=== PATIENT | male | born 1945 | race Caucasian/White ===

== ENCOUNTER → 2021-03-22 06:35 | Outpatient (CLI) | payer MEDICARE, SELFPAY ==
[2021-03-20 16:07] VITALS: BMI 29.5
--- NOTE | 2021-03-22 06:40 | CT_ITS ---
STUDY: CT CHEST WITH CONTRAST REASON FOR EXAM: Male, 75 years old. Staging for left parotid gland cancer. RADIATION DOSAGE (If Supplied By Facility): CTDIvol = ( 17.24 ) mGy, DLP = ( 736.60 ) mGycm TECHNIQUE: Transaxial imaging was performed following intravenous administration of IV 100mL Isovue-300. Multiplanar coronal and sagittal images were reformatted. Individualized dose optimization techniques were used for this CT. COMPARISON: None. FINDINGS: There is a 1.2 cm lymph node in the left submandibular region. Small benign-appearing bilateral axillary lymph nodes. Minimal linear scarring in the posterior medial segment of the right lower lobe. There is no demonstrated pleural abnormality. There are calcifications of the coronary arteries. Normal mediastinum. Normal hilar regions. Normal enhanced pulmonary arteries. Normal aorta arch and descending thoracic aorta. There are multi-level degenerative changes of the thoracic spine. Small hiatal hernia. Tiny gallstones. Bilateral renal cysts. Small left retroperitoneal lymph nodes seen in the upper abdomen. CT/Chest WITH Contrast IMPRESSION: 1.2 cm lymph node in the left submandibular region. Minimal scarring along the posterior mediastinum at the right lower lobe. Electronically Signed: Jeffrey Stacy MD at 10:11 EDT , Service support ,
== END ==
PROVIDERS: PCP Nurse Practitioner Primary Care; Referring Provider Student in an Organized Health Care Education/Training Program; Visit Provider Student in an Organized Health Care Education/Training Program
DX: C07 Malignant neoplasm of parotid gland (principal)
CPT/HCPCS: 71260; Q9967

== ENCOUNTER → 2021-04-10 14:13 | Outpatient (CLI) | payer MEDICARE, SELFPAY ==
[2021-03-20 16:07] VITALS: BMI 29.5
--- NOTE | 2021-04-10 15:37 | ST.MBS ---
Modified Barium Swallow - Patient Information Study Date: 04/10/21 Study Time: 14:30 Direct Billable Minutes: 95 Total Minutes procedure & reportin Diagnosis: Primary parotid gland malignancy (C07) Referring Physician: Jackson West Reason for Referral: To objectively assess swallow function and aspiration risk during radiation treatment. 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 [place] [place]. According to the patient and his , he is planned for follow-up facial surgery when he has completed treatment. No date has been set at this time. Plan was made to complete adjuvant radiation therapy consisting of 6996 cGy delivered to the concerning ipsilateral lymph nodes, 6600 cGy delivered to the postoperative tumor bed and left neck level 2, and 5940 cGy delivered to the remaining left neck into the base of skull all in 33 fractions. The patient began radiation therapy on 03/28/2021 and is planned for 6.5 weeks of treatment. Additional PMH: Arthritis, GERD, HTN, Hypercholesterolemia, H/O hernia repair, H/O splenectomy, Knee joint replacement status Current Diet Ordered: Regular Textures / Thin Liquids Dentition: WNL Mental Status: WNL Respiratory Status: Oxygenating on Room Air - Study Findings Consistencies: Thin Liquid, Grill Thick Liquid, Honey Thick Liquid, Pudding, Cookie - Penetration-Aspiration Scale Penetration-Aspiration Scale: OBJECTIVE ASSESSMENT OF SWALLOW FUNCTION (QUANTITATIVE ? PER TRIAL): PENETRATION / ASPIRATION SCALE (VAUGHN): 1 = does not enter airway 2 = enters airway/above vocal folds/ejected 3 = enters airway/above vocal folds/not ejected 4 = enters airway/contacts vocal folds/ejected 5 = enters airway/contacts vocal folds/not ejected 6 = enters airway/below vocal folds/ejected 7 = enters airway/below vocal folds/not ejected despite effort 8 = enters airway/below vocal folds/no effort VIDEOFLOROSCOPIC SCALE SCORE (VAUGHN): Grade I = aspiration of material that has penetrated into the laryngeal vestibule, intact cough reflex Grade II = aspiration < 10 % of the bolus, intact cough reflex Grade III = aspiration of < 10 % of the bolus, reduced cough reflex or aspiration of > 10 % of the bolus, intact cough reflex Grade IV = aspiration of > 10 % of the bolus, reduced cough reflex - Penetration-Aspiration Scale Score Thin Liquid via teaspoon Result: 1= does not enter airway Thin Liquid via teaspoon Trial 2 Result: 1= does not enter airway Thin Liquid via small single sip from cup Result: 1= does not enter airway Thin Liquid via large single sip from cup Result: 1= does not enter airway Thin Liquid via sequential sips from cup Result: 2= enter airway/above vocal folds/ejected Grill Thick Liquid via small single sip from cup Result: 1= does not enter airway Honey Thick Liquid via small single sip from cup Result: 1= does not enter airway Pudding with esophageal screen Result: 1= does not enter airway Cookie Result: 1= does not enter airway Thin Liquid via single sip from straw Result: 1= does not enter airway Thin Liquid via sequential sips from straw Result: 1= does not enter airway - Oral Phase Labial Seal: No Labial Escape Tongue Control During Bolus Hold: Posterior escape of less than half of bolus Bolus Preparation/Mastication: Slow prolonged chewing/mashing with complete recollection Bolus Transport/Lingual Motion: Brisk tongue motion Oral Residue: Residue collection on oral structures - Pharyngeal Phase Initiation of Pharyngeal Swallow: Bolus head at posterior laryngeal surgace of epiglottis Soft Palate Elevation: No bolus between soft palate and pharyngeal wall Laryngeal Elevation: Partial superior movement thyroid cart/partial apprx aryt-epig petiole Anterior Hyoid Excursion: Complete anterior movement Epiglottic Movement: Partial inversion Laryngeal Vestibule Closure at Height of Swallow: Incomplete; narrow column of air/contrast in laryngeal vestibule Pharyngeal Stripping Wave: Present - diminished Pharyngoesophageal Segment Opening: Parital distension and partial duration; parital obstruction of flow Tongue Base Retraction: Trace column of contrast between tongue base & post. pharyngeal wall Pharyngeal Residue: Collection of residue within or on pharyngeal structures - Esophageal Phase Esophageal Clearance: Esophageal retention - Mild retention observed. - Treatment Strategies Effects of treatment strategies attemped:: Decreased bolus rate = Effective. - Diagnosis/Impression Diagnosis: Mild oropharyngeal phase dysphagia (R13.12) Impression: The patient's oral phase is primarily marked by mildly decreased bolus control with posterior escape of less than half of the bolus prior to swallow onset. He presents with prolonged but effective mastication and mild oral residues that he would independently clear with initiation of a second swallow. The pharyngeal phase of the swallow is marked by decreased airway closure due to mildly decreased laryngeal elevation and approximation of the arytenoids to the posterior surface of the epiglottis. He also presented with mildly delayed initiation of the pharyngeal swallow when consuming thin liquid trials. The patient also presents with mild pharyngeal residues in the vallecula and pyriform sinuses, likely due to decrease pharyngeal contraction and duration of UES opening. The patient presented with penetration of contrast into the laryngeal vestibule with sequential swallows of thin liquids via cup. The penetration of contrast remained above the vocal folds and fully ejected from the airway. - Recommendations Diet: Regular Textures, Thin Liquids Comment: Right sided bolus placement. Tongue/finger sweep left side oral residue/pocketing if needed. Compensatory Strategies: Small Bites, Small Sips, Slow Rate - Consume sips one at a time., Alternate bites/solids and sips/liquids, Sitting upright, Remain sitting upright for 30 minutes after PO intake Recommend Repeat Modified Barium Swallow: Yes - Will recommend repeat MBS study 3 months after completion of radiation treatment. Need for Skilled Speech Therapy Services: Yes Comment: Will recommend continued outpatient speech therapy for ongoing assessment of diet tolerance, continued education re: diet recommendations and effects of radiation on swallow function, and continued implementation of prophylactic exercise program to maintain swallow function during and post radiation treatment. Education Completed: 1. Described result of evaluation., 2. Pt understands evaluation & agrees with goals and treatment plan. - Status Active ST Patient: Active - Contact Information [facility] Speech Therapy:: Shelli Munoz M.A., [facility]-[employer] SCHO[employer] TEACHER Speech Language Pathologist [facility] [address] [place] [address] [email or web address] [phone]
== END ==
PROVIDERS: PCP Nurse Practitioner Primary Care; Referring Provider Student in an Organized Health Care Education/Training Program; Visit Provider Student in an Organized Health Care Education/Training Program
DX: Z51.0 Encounter for antineoplastic radiation therapy (principal); C07 Malignant neoplasm of parotid gland
CPT/HCPCS: 74230; 77336; 77386; 92611

== ENCOUNTER → 2021-08-20 13:08 | Outpatient (CLI) | payer MEDICARE, SELFPAY ==
--- NOTE | 2021-08-20 14:37 | SP.MBSS_ITS ---
Modified Barium Swallow - Patient Information Study Date: 08/20/21 Study Time: 13:30 Direct Billable Minutes: 105 Total Minutes procedure & reportin Diagnosis: Primary parotid gland malignancy (C07) Referring Physician: Jackson West Reason for Referral: Reassess swallow function and aspiration 3 months post radiation therapy. 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 According to the patient and his , he is planned for follow-up facial surgery September 2021. The patient began radiation therapy on 03/28/2021 and had 6.5 weeks of treatment. He is planned for repeat MBS study on this date to reassess swallow function post radiation. His previous MBS study on 04/10/21 revealed mild oropharyngeal dysphagia and recommended Regular Textures, Thin Liquids with the following aspiration precautions: Right sided bolus placement. Tongue/finger sweep left side oral residue/pocketing if needed, Small Bites, Small Sips, Slow Rate - Consume sips one at a time., Alternate bites/solids and sips/liquids, Sitting upright, Remain sitting upright for 30 minutes after PO intake. Additional PMH: Arthritis, GERD, HTN, Hypercholesterolemia, H/O hernia repair, H/O splenectomy, Knee joint replacement status Current Diet Ordered: Regular Textures / Thin Liquids Dentition: WNL Mental Status: WNL Respiratory Status: Oxygenating on Room Air - Penetration-Aspiration Scale Penetration-Aspiration Scale: OBJECTIVE ASSESSMENT OF SWALLOW FUNCTION (QUANTITATIVE ? PER TRIAL): PENETRATION / ASPIRATION SCALE (VAUGHN): 1 = does not enter airway 2 = enters airway/above vocal folds/ejected 3 = enters airway/above vocal folds/not ejected 4 = enters airway/contacts vocal folds/ejected 5 = enters airway/contacts vocal folds/not ejected 6 = enters airway/below vocal folds/ejected 7 = enters airway/below vocal folds/not ejected despite effort 8 = enters airway/below vocal folds/no effort VIDEOFLOROSCOPIC SCALE SCORE (VAUGHN): Grade I = aspiration of material that has penetrated into the laryngeal vestibule, intact cough reflex Grade II = aspiration < 10 % of the bolus, intact cough reflex Grade III = aspiration of < 10 % of the bolus, reduced cough reflex or aspiration of > 10 % of the bolus, intact cough reflex Grade IV = aspiration of > 10 % of the bolus, reduced cough reflex - Penetration-Aspiration Scale Score Thin Liquid via teaspoon Result: 1= does not enter airway Thin Liquid via teaspoon Trial 2 Result: 1= does not enter airway Thin Liquid via small single sip from cup Result: 1= does not enter airway Thin Liquid via sequential sips from cup Result: 1= does not enter airway Crum Thick Liquid via small single sip from cup Result: 1= does not enter airway Honey Thick Liquid Result: 1= does not enter airway Pudding with Esophageal Screen Result: 1= does not enter airway Cookie Result: 1= does not enter airway Thin Liquid via single sip from straw Result: 1= does not enter airway Thin Liquid via sequential sips from straw Result: 1= does not enter airway - Oral Phase Labial Seal: No Labial Escape Tongue Control During Bolus Hold: Posterior escape of less than half of bolus Bolus Preparation/Mastication: Slow prolonged chewing/mashing with complete recollection Bolus Transport/Lingual Motion: Repetitive/disorganized tongue motion Oral Residue: Residue collection on oral structures - Pharyngeal Phase Initiation of Pharyngeal Swallow: Bolus head in valleculae Soft Palate Elevation: Trace column of contrast/air between soft palate and pharyngeal wall Laryngeal Elevation: Partial superior movement thyroid cart/partial apprx aryt- epig petiole Anterior Hyoid Excursion: Complete anterior movement Epiglottic Movement: Complete inversion Laryngeal Vestibule Closure at Height of Swallow: Complete; no air/contrast in laryngeal vestibule Pharyngeal Stripping Wave: Present - complete Pharyngoesophageal Segment Opening: Parital distension and partial duration; parital obstruction of flow Tongue Base Retraction: Trace column of contrast between tongue base & post. pharyngeal wall Pharyngeal Residue: Trace residue within or on pharyngeal structures - Esophageal Phase Esophageal Clearance: Esophageal retention w/ retrograde flow through pharyngoesophageal seg - Treatment Strategies Effects of treatment strategies attemped:: Double swallow = Effective in clearing mild oral and trace pharyngeal residues. - Diagnosis/Impression Diagnosis: Mild oropharyngeal phase dysphagia (R13.12) Impression: The oral phase is primarily marked by slowed, but effective mastication. He presented with mild deficits in A-P transport of bolus with repetitive lingual movements noted. The patient required a double swallow intermittently to clear mild oral residues; however, he did independently initiate use of double swallow. Jaw opening appeared to be WNL. The pharyngeal phase of the swallow is primarily marked by mildly decreased laryngeal elevation. The patient additionally has mild retention of contrast in the UES with retrograde flow of bolus resulting in mild pharyngeal residue in the pyriforms. No aspiration or penetration observed during the study. Cr icopharyngeal bar evident at C5 level; however, it did not appear to significantly impact bolus clearance through the UES. - Recommendations Diet: Regular Textures, Thin Liquids Comment: R sided bolus placement, tongue/finger sweep if needed to clear pocketing Compensatory Strategies: Small Bites, Small Sips, Slow Rate, Multiple Swallows - Intermittently throughout meals., Sitting upright, Remain sitting upright for 30 minutes after PO intake Recommend Repeat Modified Barium Swallow: Yes - Will plan for repeat MBS study in 6 months to re-assess for swallow dysfunction and increased aspiration risk related to manager terminal effects of radiation therapy. Need for Skilled Speech Therapy Services: Yes Comment: GLUE MOUNTER OPERATOR recommended the patient strictly adhere to home exercise program to prevent swallow dysfunction and increased aspiration risk s/p radiation therapy. Re- educated pt in manager terminal effects of radiation therapy, including radiation fibrosis. Pt verbalized understanding and plans to complete home exercise program 3-5X daily. GLUE MOUNTER OPERATOR recommended pt calls to reschedule OP speech therapy appointment if requiring re-education for home exercise program. Education Completed: 1. Described result of evaluation., 2. Pt understands evaluation & agrees with goals and treatment plan., 4. Family/caregivers understand evaluation & agree w/ goals & tx plan. - Status Active ST Patient: Active - Contact Information [facility] Speech Therapy:: Shelli Munoz M.A. [facility]-GLUE MOUNTER OPERATOR Speech-Language Pathologist [facility] [address] [place] [address] [email or web address] [phone] 08/20/21 14:51
== END ==
PROVIDERS: PCP Nurse Practitioner Primary Care; Referring Provider Student in an Organized Health Care Education/Training Program; Visit Provider Student in an Organized Health Care Education/Training Program
DX: C07 Malignant neoplasm of parotid gland (principal)
CPT/HCPCS: 74230; 92611

== ENCOUNTER 2021-12-14 10:30 | Outpatient (RCR) | payer MEDICARE, SELFPAY ==
[2021-03-20 16:07] VITALS: BMI 29.5
--- NOTE | 2021-04-03 12:57 | HP.SP.AD_ITS ---
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 According to the patient and his , he is planned for follow-up facial surgery when he has completed treatment. No date has been set at this time. Plan was made to complete adjuvant radiation therapy consisting of 6996 cGy delivered to the concerning ipsilateral lymph nodes, 6600 cGy delivered to the postoperative tumor bed and left neck level 2, and 5940 cGy delivered to the remaining left neck into the base of skull all in 33 fractions. The patient began radiation therapy on 03/28/2021 and is planned for 6.5 weeks of treatment. Additional PMH: Arthritis, GERD, HTN, Hypercholesterolemia, H/O hernia repair, H/O splenectomy, Knee joint replacement status Smoking Status: Never smoker - Pain Is pain an issue with your current prescribed condition?: No - Personal Occupation: Retired diversified crops farmer Right Hearing Abillity: Normal Left Hearing Abillity: Normal Visual Assistive Devices: None Patients Living Arrangements: With Significant Other Patient Allergies - Allergies Allergies No Known Allergies Allergy (Verified 03/28/21 12:56) Subjective Dysphagia - Symptoms Reported Other: Food can become stuck in L buccal cavity. - Current Diet Solids Current Diet: Regular - Current Diet Liquids Current Liquids: Thin Objective Dysphagia - Administered by Administered by: Self - Thin Liquids Administred via: Cup, Straw Laryngeal Elevation: WFL Comments: Patient consumed single and continuous sips (via straw) with no overt s/s of aspiration. He independently utilized R sided bolus placement. No patient reports for sensation of stasis. Vocal quality clear throughout trials. - Pureed Comments: Trialed bites of applesauce with minimal L sided pocketing reported from the patient. He effectively cleared L sided pocketing with tongue and liquid wash. No overt s/s of aspiration observed during trials. - Regular Impaired Mastication: Prolonged but adequate mastication observed. Comments: No overt s/s of aspiration observed during trials. Oral residue WNL. No patient complaints for sensation of stasis in throat after completion of trials. - Results Swallowing Within Normal Limits: No Swallowing Diagnosis: Oral Phase Dysphagia Additional: Plan for MBS study to further assess pharyngeal phase of swallow. Severity: Mild Other Impressions - Comments CRANIAL NERVE EXAMINATION -: CRANIAL NERVE EXAMINATION: TRIGEMINAL NERVE (V) ? impaired; decreased sensation to L side of the face, no contraction of L masseter observed upon palpation with jaw clench. FACIAL NERVE (VII) ? impaired; the patient presents with severe L sided facial paresis. Minimal ROM observed on L side of lips; however, the patient was able to demonstrate adequate lip seal holding air in his cheeks. VAGUS NERVE (X) ? no clinical abnormalities observed. HYPOGLOSSAL NERVE (XII) ? impaired; slight deviation of tongue to the right side upon protraction. Other oral motor observations: edema of L buccal cavity, oral mucosa pink and moist at this time, jaw ROM is mildly decreased. The patient noted he had impaired jaw ROM after his surgery this past January; however, he has noticed great improvement. Diet Recommendations -: Will recommend the patient for Regular textures (tough meats prepared bite- sized) / Thin liquids with aspiration precautions for small bites/sips, R-sided bolus placement, lingual/finger sweep of pocketing textures, alternate liquids and solids throughout meals, upright 90 degrees during meals and remain upright 30-60 minutes following meal. Pt and pt's verbalized understanding. Swallowing Scales -: Functional Oral Intake Scale: 7 ? Total oral intake with no special preparation, but must avoid specific food or liquid items (Regular textures / Thin liquids with preparation of tough meats cut bite-sized). Performance Status Scale for Head and Neck Cancer Patients: Normalcy of Diet ? 100 ? Full diet. Public Eating ? 100 ? No restriction of place, food, or crime specialist due to difficulty swallowing. Pt?s family have only recently began returning to restaurants after the COVID-19 pandemic. Understandability of Speech ? 100 ? Always understandable. Plan - Plan Plan: Will recommend the patient for skilled outpatient dysphagia therapy to address oral dysphagia related to cancer of parotid gland s/p parotidectomy and L neck dissection. Will provide the patient further education re: prophylactic oropharyngeal exercise program, diet texture recommendations, aspiration precautions, and compensatory strategies to decrease risk for aspiration. Plan for participation in MBS study to further assess aspiration risk, pharyngeal phase of swallow, and provide baseline swallow function. Additionally, will provide ongoing assessment of diet tolerance during and post radiation treatment. Without skilled ST services, the patient is at risk for aspiration, weight loss, and malnutrition. - Recommendations MBS: Yes Treatment Warranted: Yes - Frequency Frequency: Every Other Week Duration: 12 Months - Prognosis Prognosis: Excellent - Goals that are Established: Determination:: Goals will be added/modified as deemed necessary and appropriate. Therapy will be discontinued when results of re-evaluation indicate therapy is no longer needed or lack of progress has been documented. - Goal #1-5 Goal #1: The patient will consume least restrictive diet textures without overt s/s of aspiration with 90% accuracy with minimal verbal cues for use of compensatory strategies to decrease risk for aspiration. Goal #2: The patient will complete an oropharyngeal home exercise program during and post radiation treatment X10 repetitions, 3-5X daily independently to improve and maintain strength, ROM, and coordination of swallowing mechanism. Goal #3: The patient will participate in MBS study to objectively assess swallow function and provide recommendations for safest, least restrictive diet and compensatory strategies to reduce risk for aspiration. Education - Patient has Indicated that the Following Identified Educational Needs: None The Patient has indicated that they have no educational or learning abilities that may effect their care.: Yes - Patient Instruction Patient Education: Treatment Plan, Goals, Safety Precautions, Diet Level, Home Exercise Program Other Education: Education provided regarding the potential impacts of radiation treatment on swallow function during and post treatment, including effects such as mucositis, dysgeusia, xerostomia, radiation fibrosis, and disuse atrophy which may result in restricted range of motion and weakness of swallowing mechanism. Discussed impaired swallowing and increased risk for aspiration, aspiration related illnesses, weight loss, and malnutrition. Discussed importance for speech therapy to monitor and address dysphagia both during and post radiation treatment to maintain optimal swallow function through continued education and exercise program. Provided the patient a handout and demonstration of prophylactic oropharyngeal exercise program, stretch to promote jaw ROM. The patient provided return demonstration with all exercises 5X each with minimal verbal cues and demonstration. The patient would benefit from continued training to monitor proper execution of exercises and encourage strict adherence to exercise program. Person Taught: Patient, Significant Other Teaching Method: Discussion, Demonstration, Handout, Teach back Response to teaching: Return demonstration, Verbalize understanding, Reinforcement needed
--- NOTE | 2022-04-19 13:45 | HP.SP.DC ---
ST Discharge Summary - Discharged: Discharge: The patient was evaluated by speech therapy 04/03/2021 for dysphagia secondary to salivary duct carcinoma with left total parotidectomy with resection of facial nerve, left selective neck dissection and radiation treatment planned. He participated in 5 sessions to train in oropharyngeal strengthening and strategies to decrease risk for aspiration. Most recent MBS study 03/13/2022 recommended Regular Textures, Thin Liquids with use of strategies, continued completion of home oropharyngeal exercise program to maintain optimal swallow function, and plan for repeat MBS study in 1 year to monitor dysphagia as he is at risk for worsening swallow function s/p radiation treatment. Will recommend return to dysphagia therapy if worsening s/s of aspiration or need for review in oropharyngeal exercise program.
== END 2021-12-14 19:00 | disposition home or self-care (01) ==
LOC: SP 10:30
PROVIDERS: PCP Nurse Practitioner Primary Care; Referring Provider Student in an Organized Health Care Education/Training Program; Visit Provider Student in an Organized Health Care Education/Training Program
DX: C07 Malignant neoplasm of parotid gland (principal)
CPT/HCPCS: 92526; 92610

== ENCOUNTER → 2022-03-13 | Outpatient (CLI) | payer MEDICARE, SELFPAY ==
--- NOTE | 2022-03-13 13:28 | ST.MBS ---
Modified Barium Swallow - Patient Information Study Date: 03/13/22 Study Time: 12:45 Direct Billable Minutes: 75 Total Minutes procedure & reportin Diagnosis: Malignant neoplasm of parotid gland (C07) Referring Physician: Jackson West Reason for Referral: Objectively assess swallow function, risk for aspiration, and determine recommendations for least restrictive diet textures and compensatory strategies to improve safety of swallow. 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 The patient began radiation therapy on 03/28/2021 and had 6.5 weeks of treatment. He is planned for repeat MBS study on this date for ongoing assessment of swallow function post radiation. He is at risk for worsening dysphagia and increased aspiration risk. MBS study on 04/10/21 revealed mild oropharyngeal dysphagia and recommended Regular Textures, Thin Liquids with the following aspiration precautions: Right sided bolus placement. Tongue/finger sweep left side oral residue/pocketing if needed, Small Bites, Small Sips, Slow Rate - Consume sips one at a time., Alternate bites/solids and sips/liquids, Sitting upright, Remain sitting upright for 30 minutes after PO intake. Repeat study on 08/20/2021 revealed continued mild oropharyngeal dysphagia and recommended Regular Textures / Thin Liquids with the following aspiration precautions: R sided bolus placement, tongue/finger sweep if needed to clear pocketing, Small Bites, Small Sips, Slow Rate, Multiple Swallows - Intermittently throughout meals., Sitting upright, Remain sitting upright for 30 minutes after PO intake. The patient reported having eyebrow lift in September 2021. Additional PMH: Arthritis, GERD, HTN, Hypercholesterolemia, H/O hernia repair, H/O splenectomy, Knee joint replacement status Current Diet Ordered: Regular Textures / Thin Liquids Dentition: WNL Mental Status: WNL Respiratory Status: Oxygenating on Room Air - Penetration-Aspiration Scale Penetration-Aspiration Scale: OBJECTIVE ASSESSMENT OF SWALLOW FUNCTION (QUANTITATIVE ? PER TRIAL): PENETRATION / ASPIRATION SCALE (VAUGHN): 1 = does not enter airway 2 = enters airway/above vocal folds/ejected 3 = enters airway/above vocal folds/not ejected 4 = enters airway/contacts vocal folds/ejected 5 = enters airway/contacts vocal folds/not ejected 6 = enters airway/below vocal folds/ejected 7 = enters airway/below vocal folds/not ejected despite effort 8 = enters airway/below vocal folds/no effort VIDEOFLOROSCOPIC SCALE SCORE (VAUGHN): Grade I = aspiration of material that has penetrated into the laryngeal vestibule, intact cough reflex Grade II = aspiration < 10 % of the bolus, intact cough reflex Grade III = aspiration of < 10 % of the bolus, reduced cough reflex or aspiration of > 10 % of the bolus, intact cough reflex Grade IV = aspiration of > 10 % of the bolus, reduced cough reflex - Penetration-Aspiration Scale Score Thin Liquid via teaspoon Result: 1= does not enter airway Thin Liquid via teaspoon Trial 2 Result: 1= does not enter airway Thin Liquid via large single sip from cup Result: 1= does not enter airway Thin Liquid via sequential sips from cup Result: 1= does not enter airway [place] Thick Liquid via large single sip from cup Result: 1= does not enter airway [place] Thick Liquid via small single sip from cup Result: 1= does not enter airway Pudding via teaspoon with esophageal screen Result: 1= does not enter airway Thin Liquid via single sip from straw Result: 1= does not enter airway Thin Liquid via sequential sips from straw Result: 2= enter airway/above vocal folds/ejected - trace laryngeal penetration with full ejection 1/2 Cookie Result: 1= does not enter airway - Oral Phase Labial Seal: No Labial Escape Tongue Control During Bolus Hold: Posterior escape of less than half of bolus Bolus Preparation/Mastication: Timely and efficient chewing and mashing Bolus Transport/Lingual Motion: Delayed initiation of tongue motion Oral Residue: Trace residue lining oral structures - Pharyngeal Phase Initiation of Pharyngeal Swallow: Bolus head at posterior laryngeal surgace of epiglottis Soft Palate Elevation: No bolus between soft palate and pharyngeal wall Laryngeal Elevation: Partial superior movement thyroid cart/partial apprx aryt-epig petiole Anterior Hyoid Excursion: Complete anterior movement Epiglottic Movement: Complete inversion Laryngeal Vestibule Closure at Height of Swallow: Incomplete; narrow column of air/contrast in laryngeal vestibule Pharyngeal Stripping Wave: Present - complete Pharyngoesophageal Segment Opening: Complete distension and complete duration; no obstruction of flow Tongue Base Retraction: Trace column of contrast between tongue base & post. pharyngeal wall Pharyngeal Residue: Trace residue within or on pharyngeal structures - Esophageal Phase Esophageal Clearance: Esophageal retention w/ retrograde flow below pharyngoesophageal seg. - Diagnosis/Impression Diagnosis: Mild oropharyngeal dysphagia (R13.12) Impression: The oral phase is marked by... -Mild deficits in bolus control with posterior loss of sips of liquids to the posterior surface of the epiglottis, resulting in suboptimal bolus placement prior to swallow onset. -Mild delay in A-P transport. -Trace oral residue. The pharyngeal phase is marked by... -Mild delay initiating the pharyngeal swallow. -Mildly decreased laryngeal elevation; however, the patient demonstrated good airway closure during the swallow. -On one trial of sequential sips of thin liquids via straw, he demonstrated trace laryngeal penetration above the vocal folds with full ejection. -Trace pharyngeal residue. No aspiration observed during the study. - Recommendations Diet: Regular Textures, Thin Liquids Comment: Right sided bolus placement. Tongue/finger sweep left side oral residue/pocketing if needed Compensatory Strategies: Small Bites, Small Sips, Slow Rate, Sitting upright, Remain sitting upright for 30 minutes after PO intake Recommend Repeat Modified Barium Swallow: Yes - Repeat MBS study in 12 months to monitor swallow function s/p radiation treatment for cancer of parotid gland Need for Skilled Speech Therapy Services: No Comment: Will recommend continued completion of home oropharyngeal exercise program to maintain optimal swallow function. SURGICAL ELASTIC KNITTER HAND FRAME educated the patient in pt's increased risk for worsening dysphagia s/p radiation treatment due to alf effects of radiation, such as radiation fibrosis. He verbalized understanding and stated he still has his exercise handouts at home. Will plan for repeat MBS study in 1 year. SURGICAL ELASTIC KNITTER HAND FRAME recommended the patient call and schedule additional appointment if concerns for worsening swallow function. Education Completed: 1. Described result of evaluation. - Status Active ST Patient: Active - Contact Information [facility] Speech Therapy:: Shelli Munoz M.A. [facility]-SURGICAL E[employer]IC KNITTER HAND FRAME Speech-Language Pathologist [facility] [address] [place] [address] [email or web address] [phone] 03/13/22 13:39
== END | disposition home or self-care (01) ==
LOC: RAD 12:41
PROVIDERS: PCP Nurse Practitioner Primary Care; Visit Provider Student in an Organized Health Care Education/Training Program
DX: C07 Malignant neoplasm of parotid gland (principal)
CPT/HCPCS: 74230; 92611

== ENCOUNTER → 2023-03-12 | Outpatient (CLI) | payer MEDICARE, SELFPAY ==
--- NOTE | 2023-03-12 17:34 | ST.MBS ---
Modified Barium Swallow Patient Information Study Date: 03/12/23 Study Time: 13:00 Direct Billable Minutes: 104 Total Minutes procedure & reportin Diagnosis: Malignant neoplasm of parotid gland (C07) Referring Physician: Jackson West Reason for Referral: Objectively assess swallow function, assess risk for aspiration, and determine recommendations for least restrictive diet textures and compensatory strategies to improve safety of swallow. 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 The patient began radiation therapy on 03/28/2021 and had 6.5 weeks of treatment. MBS study on 04/10/21 revealed mild oropharyngeal dysphagia and recommended Regular Textures, Thin Liquids with the following aspiration precautions: Right sided bolus placement. Tongue/finger sweep left side oral residue/pocketing if needed, Small Bites, Small Sips, Slow Rate - Consume sips one at a time., Alternate bites/solids and sips/liquids, Sitting upright, Remain sitting upright for 30 minutes after PO intake. Repeat study on 08/20/2021 revealed continued mild oropharyngeal dysphagia and recommended Regular Textures / Thin Liquids with the following aspiration precautions: R sided bolus placement, tongue/finger sweep if needed to clear pocketing, Small Bites, Small Sips, Slow Rate, Multiple Swallows - Intermittently throughout meals., Sitting upright, Remain sitting upright for 30 minutes after PO intake. The patient reported having eyebrow lift in September 2021. Patient had repeat study done on 03/13/22 with similar recommendations- small bites/sips, right sided bolus placement, and tongue/finger sweep on the left side of oral cavity. He is planned for repeat MBS study on this date for ongoing assessment of swallow function post radiation. He is at risk for worsening dysphagia and increased aspiration risk. Patient reports he has not been preforming his recommended swallowing exercises since last study. Additional PMH: Arthritis, GERD, HTN, Hypercholesterolemia, H/O hernia repair, H/O splenectomy, Knee joint replacement status Current Diet Ordered: Regular Textures/ Thin Liquids Dentition: WNL Mental Status: WNL Respiratory Status: Oxygenating on Room Air Penetration-Aspiration Scale Penetration-Aspiration Scale: OBJECTIVE ASSESSMENT OF SWALLOW FUNCTION (QUANTITATIVE ? PER TRIAL): PENETRATION / ASPIRATION SCALE (VAUGHN): 1 = does not enter airway 2 = enters airway/above vocal folds/ejected 3 = enters airway/above vocal folds/not ejected 4 = enters airway/contacts vocal folds/ejected 5 = enters airway/contacts vocal folds/not ejected 6 = enters airway/below vocal folds/ejected 7 = enters airway/below vocal folds/not ejected despite effort 8 = enters airway/below vocal folds/no effort VIDEOFLOROSCOPIC SCALE SCORE (VAUGHN): Grade I = aspiration of material that has penetrated into the laryngeal vestibule, intact cough reflex Grade II = aspiration < 10 % of the bolus, intact cough reflex Grade III = aspiration of < 10 % of the bolus, reduced cough reflex or aspiration of > 10 % of the bolus, intact cough reflex Grade IV = aspiration of > 10 % of the bolus, reduced cough reflex Penetration-Aspiration Scale Score Thin Liquid via teaspoon: Result: 1= does not enter airway Thin Liquid via teaspoon Trial 2: Result: 1= does not enter airway Thin Liquid by small cup sip: Result: 2= enter airway/above vocal folds/ejected [place] Thick Liquid by small cup sip: Result: 2= enter airway/above vocal folds/ejected Pudding via teaspoon: Result: 1= does not enter airway Thin Liquids from seq. sips by straw: Result: 2= enter airway/above vocal folds/ejected 1/2 Cookie: Result: 1= does not enter airway Oral Phase Labial Seal: No Labial Escape Tongue Control During Bolus Hold: Posterior escape of less than half of bolus Bolus Preparation/Mastication: Timely and efficient chewing and mashing Bolus Transport/Lingual Motion: Delayed initiation of tongue motion Oral Residue: Majority of bolus remaining (on thin by cup trial) Pharyngeal Phase Initiation of Pharyngeal Swallow: Bolus head at posterior laryngeal surgace of epiglottis Soft Palate Elevation: Trace column of contrast/air between soft palate and pharyngeal wall Laryngeal Elevation: Partial superior movement thyroid cart/partial apprx aryt-epig petiole Anterior Hyoid Excursion: Partial anterior movement Epiglottic Movement: Complete inversion Laryngeal Vestibule Closure at Height of Swallow: Incomplete; narrow column of air/contrast in laryngeal vestibule Pharyngeal Stripping Wave: Present - complete Pharyngoesophageal Segment Opening: Complete distension and complete duration; no obstruction of flow Tongue Base Retraction: Trace column of contrast between tongue base & post. pharyngeal wall Pharyngeal Residue: Trace residue within or on pharyngeal structures Esophageal Phase Esophageal Clearance: Esophageal retention w/ retrograde flow below pharyngoesophageal seg. Diagnosis/Impression Diagnosis: Mild Oropharyngeal Dysphagia Impression: The oral phase is marked by... -Mild deficits in bolus control with posterior loss of sips of liquids to the posterior surface of the epiglottis, resulting in suboptimal bolus placement prior to swallow onset. -Mild delay in A-P transport. -Collection of oral residue most notable on cookie trial and majority of bolus remaining on thin by cup trial, which mostly cleared after independent use of multiple swallows. The pharyngeal phase is marked by... -Mild delay initiating the pharyngeal swallow. -Mildly decreased airway closure during the swallow due to partial anterior hyoid excursion, and decreased laryngeal elevation, most notable on trials with larger bolus size. -Trace pharyngeal residue. -No aspiration observed during this study. The esophageal phase is primarily marked by... -Esophageal retention of pudding in mid esophagus with retrograde flow remaining well below UES, which reliably cleared after use of thin liquid wash. Recommendations Diet: Regular Textures and Thin Liquids Comment: Right sided bolus placement. Tongue/finger sweep left side oral residue/pocketing if needed Compensatory Strategies: Small Bites, Small Sips, Slow Rate, Alternate bites/solids and sips/liquids, Sitting upright and Remain sitting upright for 30 minutes after PO intake Recommend Repeat Modified Barium Swallow: Yes Comment: Repeat MBS study in 12 months to monitor swallow function s/p radiation treatment for cancer of parotid gland Need for Skilled Speech Therapy Services: No Comment: Will recommend continued completion of home oropharyngeal exercise program to maintain optimal swallow function. VICE PRESIDENT OF SALES educated the patient in pt's increased risk for worsening dysphagia s/p radiation treatment due to prison effects of radiation, such as radiation fibrosis. He verbalized understanding and VICE PRESIDENT OF SALES provided additional exercise handout. Will plan for repeat MBS study in 1 year. VICE PRESIDENT OF SALES recommended the patient call and schedule additional appointment if concerns for worsening swallow function. Education Completed: 1. Described result of evaluation., 2. Pt understands evaluation & agrees with goals and treatment plan. and 5. Patient demonstrates recommended strategies. Status Active ST Patient: Active Contact Information [facility] Speech Therapy:: [facility] Speech Therapy:: Fernando Davis M.A. [facility]-VICE PRESIDENT OF SALES Speech-Language Pathologist [facility] [address] [place] [address]
== END | disposition home or self-care (01) ==
PROVIDERS: PCP Nurse Practitioner Primary Care; Referring Provider Student in an Organized Health Care Education/Training Program; Visit Provider Student in an Organized Health Care Education/Training Program
DX: C07 Malignant neoplasm of parotid gland (principal)
CPT/HCPCS: 74230; 92611

== ENCOUNTER → 2024-03-10 | Outpatient (CLI) | payer MEDICARE, SELFPAY ==
--- NOTE | 2024-03-10 08:57 | ST.MBS ---
Modified Barium Swallow Patient Information Study Date: 03/10/24 Study Time: 13:00 Direct Billable Minutes: 85 Total Minutes procedure & reportin Diagnosis: Malignant neoplasm of parotid gland (C07) Referring Physician: Jackson West Reason for Referral: Objectively assess swallow function, assess risk for aspiration, and determine recommendations for least restrictive diet textures and compensatory strategies to improve safety of swallow. 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. From 03/28/2021 ? 05/11/2021 he received adjuvant radiation therapy. 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 He was considered for palliative radiation therapy 06/10/2023, but given that his symptoms were minimal, he was not interested in pursuing further treatment at the time. He was recommended to return on an as-needed basis moving forward if he develops worsening symptoms related to the disease. He has participated in multiple MBSS during and following his radiation treatment (04/10/21, 08/20/2021, 03/13/2021, 02/20/2023). Most recent MBSS 03/12/2023 revealed mild oropharyngeal dysphagia and recommended Regular Textures, Thin Liquids with the following aspiration precautions: Right sided bolus placement, Tongue/finger sweep left side oral residue/pocketing if needed, Small Bites, Small Sips, Slow Rate - Consume sips one at a time., Alternate bites/solids and sips/liquids, Sitting upright, Remain sitting upright for 30 minutes after PO intake. He is planned for repeat MBSS on this date for ongoing assessment of swallow function as he is at risk for worsening dysphagia and increased aspiration risk s/p radiation therapy for salivary duct carcinoma. Pt reported no concerns for worsening swallow function at this time. Current Diet Ordered: Regular textures / Thin liquids Dentition: WNL and Natural Teeth Mental Status: WNL Respiratory Status: Oxygenating on Room Air Penetration-Aspiration Scale Penetration-Aspiration Scale: OBJECTIVE ASSESSMENT OF SWALLOW FUNCTION (QUANTITATIVE ? PER TRIAL): PENETRATION / ASPIRATION SCALE (VAUGHN): 1 = does not enter airway 2 = enters airway/above vocal folds/ejected 3 = enters airway/above vocal folds/not ejected 4 = enters airway/contacts vocal folds/ejected 5 = enters airway/contacts vocal folds/not ejected 6 = enters airway/below vocal folds/ejected 7 = enters airway/below vocal folds/not ejected despite effort 8 = enters airway/below vocal folds/no effort VIDEOFLOROSCOPIC SCALE SCORE (VAUGHN): Grade I = aspiration of material that has penetrated into the laryngeal vestibule, intact cough reflex Grade II = aspiration < 10 % of the bolus, intact cough reflex Grade III = aspiration of < 10 % of the bolus, reduced cough reflex or aspiration of > 10 % of the bolus, intact cough reflex Grade IV = aspiration of > 10 % of the bolus, reduced cough reflex Penetration-Aspiration Scale Score Thin Liquid via teaspoon: Result: 1= does not enter airway Thin Liquid via teaspoon Trial 2: Result: 1= does not enter airway Thin Liquid via large single sip: cup: Result: 1= does not enter airway [place] Thick Liquid via small single sip: cup: Result: 1= does not enter airway Pudding via teaspoon: Result: 1= does not enter airway 1/2 Cookie: Result: 1= does not enter airway Thin Liquid via sequential sips:straw: Result: 1= does not enter airway Thin Liquid via single sip: straw: Result: 1= does not enter airway Oral Phase Labial Seal: Interlabial escape, no progression to anterior lip Tongue Control During Bolus Hold: Cohesive bolus between tongue to palatal seal Bolus Preparation/Mastication: Timely and efficient chewing and mashing Bolus Transport/Lingual Motion: Repetitive/disorganized tongue motion Oral Residue: Residue collection on oral structures (piecemeal deglutition with large sips and pudding, which fully cleared with independent second swallow) Pharyngeal Phase Initiation of Pharyngeal Swallow: Bolus head in valleculae Soft Palate Elevation: No bolus between soft palate and pharyngeal wall Laryngeal Elevation: Comp. Superior move thyroid cart w/comp. apprx arytenoid cart-epig pet Anterior Hyoid Excursion: Complete anterior movement Epiglottic Movement: Complete inversion Laryngeal Vestibule Closure at Height of Swallow: Complete; no air/contrast in laryngeal vestibule Pharyngeal Stripping Wave: Present - complete Pharyngoesophageal Segment Opening: Parital distension and partial duration; parital obstruction of flow Tongue Base Retraction: Trace column of contrast between tongue base & post. pharyngeal wall Pharyngeal Residue: Trace residue within or on pharyngeal structures Esophageal Phase Esophageal Clearance: Esophageal retention w/ retrograde flow through pharyngoesophageal seg Diagnosis/Impression Diagnosis: Oropharyngeal swallow function grossly WFL Impression: Oropharyngeal swallow function grossly WFL. Min lingual pumping with certain thin liquid trials. Piecemeal deglutition with large sips and pudding. Timely swallow onset. Complete airway closure during the swallow with no laryngeal penetration or aspiration. Trace pharyngeal residue after the swallow. The esophageal phase is primarily marked by... -Mild collection of pudding residue in the upper esophagus with trace retrograde flow through the UES to the pyriforms. During full esophageal screen of pudding, no additional retention. -After 1/2 cookie trial, pt was repositioned with shoulders up (one at a time) and angling the patient's posture to the side to determine if there was any collection of residue in the upper esophagus at the level of the shoulders, but no residues were seen. Recommendations Diet: Regular Textures and Thin Liquids Compensatory Strategies: Small Bites, Small Sips, Slow Rate, Alternate bites/solids and sips/liquids, Sitting upright and Remain sitting upright for 30 minutes after PO intake Recommend Repeat Modified Barium Swallow: Yes Comment: Plan for repeat MBSS in 12 months to continue to monitor swallow function s/p radiation, as pt is at increased risk for worsening dysphagia and aspiration risk related to detention effects of radiation. Need for Skilled Speech Therapy Services: No Comment: Please continue home maintenance oropharyngeal exercise program. If need for re-instruction, will recommend return to OP speech therapy. Recommended Referrals: GI Consult (No immediate GI consult recommended as retrograde flow of barium through the UES was trace; however, if the patient would sense reflux or retrograde flow of food/drink at meals, please consider GI consult.) Education Completed: 1. Described result of evaluation. Status Active ST Patient: Active Contact Information [facility] Speech Therapy:: Shelli Munoz M.A. CCC-MANAGER SEARCH ENGINE? Speech-Language Pathologist?? [facility] [address] [place] [address]? [email or web address]?? [phone]
== END | disposition home or self-care (01) ==
PROVIDERS: PCP Nurse Practitioner Primary Care; Referring Provider Student in an Organized Health Care Education/Training Program; Visit Provider Student in an Organized Health Care Education/Training Program
DX: C07 Malignant neoplasm of parotid gland (principal)
CPT/HCPCS: 74230; 92611

== ENCOUNTER → 2025-04-28 | Outpatient (CLI) | payer MEDICARE, SELFPAY ==
--- NOTE | 2025-04-28 11:47 | ST.MBS ---
Modified Barium Swallow Patient Information Study Date: 04/28/25 Study Time: 09:30 Direct Billable Minutes: 85 Total Minutes procedure & reportin Diagnosis: Malignant neoplasm of parotid gland C07 Referring Physician: Jackson West Reason for Referral: Objectively assess swallow function, assess risk for aspiration, and determine recommendations for least restrictive diet textures and compensatory strategies to improve safety of swallow. 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 From 03/28/2021 ? 05/11/2021 he received adjuvant radiation therapy. He developed double vision in October 2022 and unfortunately was eventually found to have metastatic disease status post MRI brain (12/26/2022, 03/21/2023), PET scan (04/17/2023), and CT-guided biopsy of a sclerotic right third rib lesion (05/05/2023).? He was considered for palliative radiation therapy 06/10/2023, but given that his symptoms were minimal, he was not interested in pursuing further treatment at the time. He was recommended to return on an as-needed basis moving forward if he develops worsening symptoms related to the disease. Dysphagia Hx: He has participated in multiple MBSS during and following his radiation treatment (04/10/21, 08/20/2021, 03/13/2021, 02/20/2023, 03/10/2024). Most recent MBSS 03/10/2024 revealed oropharyngeal swallow function grossly WNL and recommended Regular Textures, Thin Liquids with the following aspiration precautions: Small Bites, Small Sips, Slow Rate, Alternate bites/solids and sips/liquids, Sitting upright and Remain sitting upright for 30 minutes after PO intake. He is planned for repeat MBSS on this date for ongoing assessment of swallow function as he is at risk for worsening dysphagia and increased aspiration risk s/p radiation therapy for salivary duct carcinoma. Pt reported no concerns for worsening swallow function at this time. Ongoing moderate xerostomia managed by biotene mouthwash and spray. Current Diet Ordered: Regular textures / Thin liquids Dentition: WNL and Natural Teeth Mental Status: WNL Respiratory Status: Oxygenating on Room Air Penetration-Aspiration Scale Penetration-Aspiration Scale: OBJECTIVE ASSESSMENT OF SWALLOW FUNCTION (QUANTITATIVE ? PER TRIAL): PENETRATION / ASPIRATION SCALE (VAUGHN): 1 = does not enter airway 2 = enters airway/above vocal folds/ejected 3 = enters airway/above vocal folds/not ejected 4 = enters airway/contacts vocal folds/ejected 5 = enters airway/contacts vocal folds/not ejected 6 = enters airway/below vocal folds/ejected 7 = enters airway/below vocal folds/not ejected despite effort 8 = enters airway/below vocal folds/no effort VIDEOFLOROSCOPIC SCALE SCORE (VAUGHN): Grade I = aspiration of material that has penetrated into the laryngeal vestibule, intact cough reflex Grade II = aspiration < 10 % of the bolus, intact cough reflex Grade III = aspiration of < 10 % of the bolus, reduced cough reflex or aspiration of > 10 % of the bolus, intact cough reflex Grade IV = aspiration of > 10 % of the bolus, reduced cough reflex Penetration-Aspiration Scale Score Thin Liquid via teaspoon: Result: 1= does not enter airway Thin Liquid via teaspoon Trial 2: Result: 1= does not enter airway Thin Liquid via large single sip: cup: Result: 1= does not enter airway Thin Liquid via sequential sips: cup: Result: 1= does not enter airway Pudding via teaspoon: Result: 1= does not enter airway Comment: Esophageal screen - Retention in the upper esophagus. Thin Liquid via single sip: straw: Result: 1= does not enter airway Comment: Esophageal screen - Trace retention in the UES w/ retrograde flow. Liquid wash somewhat cleared retention of pudding in the upper esophagus w/ mild retention remaining after liquids wash. 1/2 Cookie: Result: 1= does not enter airway Comment: Esophageal screen - Complete clearance. Oral Phase Labial Seal: No Labial Escape Tongue Control During Bolus Hold: Escape to lateral buccal cavity/floor of mouth Bolus Preparation/Mastication: Timely and efficient chewing and mashing Bolus Transport/Lingual Motion: Brisk tongue motion Oral Residue: Residue collection on oral structures (Spilled the vallecula after the swallow several times) Pharyngeal Phase Initiation of Pharyngeal Swallow: Bolus head in valleculae Soft Palate Elevation: No bolus between soft palate and pharyngeal wall Laryngeal Elevation: Comp. Superior move thyroid cart w/comp. apprx arytenoid cart-epig pet Anterior Hyoid Excursion: Partial anterior movement Epiglottic Movement: Complete inversion Laryngeal Vestibule Closure at Height of Swallow: Complete; no air/contrast in laryngeal vestibule Pharyngeal Stripping Wave: Present - complete Pharyngoesophageal Segment Opening: Parital distension and partial duration; parital obstruction of flow Tongue Base Retraction: Trace column of contrast between tongue base & post. pharyngeal wall Pharyngeal Residue: Trace residue within or on pharyngeal structures Esophageal Phase Esophageal Clearance: Esophageal retention w/ retrograde flow through pharyngoesophageal seg Diagnosis/Impression Diagnosis: Oropharyngeal swallow function grossly WNL MBS Impressions: Oropharyngeal swallow function grossly WNL. The esophageal phase is primarily marked by... -Collection of pudding residue in the upper esophagus, which somewhat cleared w/ liquid wash. -Trace retention of barium in the UES w/ retrograde flow. 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 Need for Skilled Speech Therapy Services: No Comment: Dysphagia tx not warranted at this time. Recommended Referrals: GI Consult (No immediate GI consult recommended; however, if the patient has increased s/s of GERD or regurgitation of food/drink, would consider GI consult.) Education Completed: 1. Described result of evaluation. Status Active ST Patient: Active Contact Information [facility] Speech Therapy:: Shelli Munoz M.A. CCC-CLAMPER? Speech-Language Pathologist?? [facility] [address] [place] [address]? [email or web address]?? [phone]
== END | disposition home or self-care (01) ==
LOC: RAD 09:17
PROVIDERS: PCP Nurse Practitioner Primary Care; Referring Provider Student in an Organized Health Care Education/Training Program; Visit Provider Student in an Organized Health Care Education/Training Program
DX: C07 Malignant neoplasm of parotid gland (principal)
CPT/HCPCS: 74230; 92611